=== PATIENT | male | born 1995 | race Two or more races ===

== ENCOUNTER 2024-12-12 22:40 | Emergency (ER) | payer OTHER ==
[~2024-12-12] VITALS: Ht 165.1 cm; Wt 72.6 kg
[2024-12-12] MEDS ORDERED: KETOROLAC TROMETHAMINE 15 MG/ML VIAL ONE (23:20)
[2024-12-12] MEDS ORDERED: MAG HYDROX/AL HYDROX/SIMETH 30 ML UDC ONE (23:20)
[2024-12-12] MEDS ORDERED: METOCLOPRAMIDE HCL 10 MG/2 ML VIAL ONE (23:20)
[2024-12-12] MEDS ORDERED: LIDOCAINE VISCOUS 2% UD 15 ML UDC ONE (23:20)
[2024-12-12] MEDS ORDERED: FAMOTIDINE/PF INJ 20 MG/2 ML VIAL IV ONE (23:21)
[2024-12-12 23:31] LABS: BASOPHILS % (AUTO) 0.2 % (0.0-2.0); EOSINOPHILS % (AUTO) 0.2 % (0.0-6.0); HEMATOCRIT 48 % (39-51); HEMOGLOBIN 16.1 g/dL (13.5-17.5); LYMPHOCYTES % (AUTO) 16.1 % (20.0-44.0); MEAN CORPUSCULAR HEMOGLOBIN 30 PG (26.0-33.0); MEAN CORPUSCULAR HGB CONC 34 g/dl (31.0-36.0); MEAN CORPUSCULAR VOLUME 87 fL (80-96); MONOCYTES # (AUTO) 0.3 K/uL (0.1-1.30); MONOCYTES % (AUTO) 4.6 % (2.0-12.0); NEUTROPHILS % (AUTO) 78.9 % (43.0-81.0); PLATELET COUNT (AUTO) 210 K/uL (150-450); RED BLOOD CELL COUNT(AUTO) 5.45 MIL/uL (4.5-6.0); RED CELL DISTRIBUTION WIDTH 13.7 % (11.5-15.0); WHITE BLOOD COUNT (AUTO) 6.4 K/uL (4.3-11.0)
[2024-12-12] MEDS: LIDOCAINE VISCOUS 2% UD 15 ML UDC MM ONE (23:31)
[2024-12-12] MEDS: IV NS 0.9% 1,000 ML BAG IV ONE (23:31)
[2024-12-12] MEDS: MAG HYDROX/AL HYDROX/SIMETH 30 ML UDC PO ONE (23:31)
[2024-12-12] MEDS: KETOROLAC TROMETHAMINE 15 MG/ML VIAL IV ONE (23:31)
[2024-12-12] MEDS: METOCLOPRAMIDE HCL 10 MG/2 ML VIAL IV ONE (23:31)
[2024-12-12] MEDS: FAMOTIDINE/PF INJ 20 MG/2 ML VIAL IV ONE (23:31)
[2024-12-12 23:38] LABS: CALCIUM, SERUM 8.5 mg/dL (8.5-10.1); CREATININE 1.1 mg/dL (0.6-1.3); POTASSIUM 3.6 mmol/L (3.5-5.1)
[2024-12-12 23:43] LABS: ALBUMIN 3.4 g/dL (3.4-5.0); BILIRUBIN,DIRECT 0.1 mg/dL (0.0-0.2); BILIRUBIN,TOTAL 0.2 mg/dL (0.2-1.0); TOTAL PROTEIN, SERUM 7.2 g/dL (6.4-8.2)
[2024-12-13] MEDS ORDERED: IOHEXOL-300 100 ML VIAL IV ONE (01:18)
[2024-12-13] MEDS ORDERED: PANT40TA49 PO (03:00)
[2024-12-13] MEDS ORDERED: KETO10TA2 PO (03:00)
[2024-12-13] MEDS ORDERED: DICY10CA37 PO (03:00)
[2024-12-13 03:22] VITALS: BP 110/80; TEMP 97.8; O2SAT 96
== END 2024-12-13 03:22 | disposition home or self-care (01) ==
LOC: ER 22:43
DX: K52.9 Noninfective gastroenteritis and colitis, unspecified (principal)
CPT/HCPCS: 99285; 96374; 96375; 96361; 85025; 80048; 83690; 80076; 36415; 74177; 76705; J1885; J3490; J2765; J7030; Q9967